=== PATIENT | female | born 1970 | race Caucasian/White ===

== ENCOUNTER 2024-10-02 10:05 | Outpatient (AMB) | payer OTHER, SELFPAY ==
[2024-10-02 10:13] VITALS: BP 133/84; PULSE 112; RESP 19; TEMP 36.8; O2SAT 98; BMI 30.3
--- NOTE | 2024-10-02 10:13 | PD.GSCLVISIT ---
Vital Signs - [facility] 10/02/24 10:13 Height 1.73 m Weight 90.407 kg Weight Measurement Method Standing Scale BMI 30.3 BP 133/84 H Blood Pressure Source Automatic Cuff Blood Pressure Location Right Lower Arm Position Sitting Respiration 19 Pulse 112 H Pulse Source Monitor Temp 98.2 F Temp Source Temporal Artery Scan Pulse Oximetry (%) 98 Oxygen Delivery Method Room Air Med/Allergies Allergies & Medications Allergies azithromycin Allergy (Severe, Verified 10/02/24 10:15) Rash camphor (From Biofreeze) Allergy (Severe, Verified 10/02/24 10:15) Difficulty Breathing latex Allergy (Severe, Verified 10/02/24 10:15) Difficulty Breathing lisinopril Allergy (Severe, Verified 10/02/24 10:15) COUGH menthol (From Biofreeze) Allergy (Severe, Verified 10/02/24 10:15) Difficulty Breathing metoclopramide Allergy (Severe, Verified 10/02/24 10:15) Hallucinating nifedipine Allergy (Severe, Verified 10/02/24 10:15) RAPID HEART RATE NSAIDS (Non-Steroidal Anti-Inflamma Allergy (Severe, Verified 10/02/24 10:15) KIDNEYS STOP WORKING promethazine (From Phenergan) Allergy (Severe, Verified 10/02/24 10:15) Agitated vancomycin Allergy (Severe, Verified 10/02/24 10:15) Redness of Skin gabapentin (From Neurontin) Allergy (Intermediate, Verified 10/02/24 10:15) Hallucinating levofloxacin Adverse Reaction (Severe, Verified 10/02/24 10:15) extreme heel pain N95 Allergy (Severe, Uncoded 10/02/24 10:15) Difficulty Breathing Medication Reconciliation paroxetine HCl 20 mg tablet (Paxil) 10 mg PO HS 09/30/21 [History Confirmed 10/02/24] sevelamer carbonate 800 mg tablet 800 mg PO TIDWM 08/11/22 [History Confirmed 10/02/24] atenolol 25 mg tablet 50 mg (2 x 25 mg) PO QDAY #30 tabs 08/17/22 [Rx Confirmed 10/02/24] losartan 25 mg tablet 100 mg PO QDAY 06/07/23 [History Confirmed 10/02/24] calcitriol 0.5 mcg capsule 0.5 mcg PO QDAY 02/26/24 [History Confirmed 10/02/24] calcium carbonate (Tums) 2,000 mg PO QDAY 02/26/24 [History Confirmed 10/02/24] cetirizine 10 mg tablet (Zyrtec) 10 mg PO QDAY 02/26/24 [History Confirmed 10/02/24] vitamin B complex-vitamin C-folic acid 0.8 mg tablet (Malika-Carissa) 1 tab PO QDAY 02/26/24 [History Confirmed 10/02/24] calcitriol 0.25 mcg capsule 0.25 mcg PO QDAY #30 caps 04/13/24 [Rx Confirmed 10/02/24] MA Intake Visit Data Collection New Patient or Established: Established Patient (seen at [facility] within 3 years) Seen by Clinical Staff ONLY (RN/GIL): No Reason for Visit:: wrosening hemorrhoid Pain Present Currently: No Pain scale:: 0 Mint Wafer Depositor Required: No PCP or OBGYN visit in last 3 months: No Hx Now: No Do You Feel Safe at Home: Yes Authorities Contacted: N/A Smoking Status Smoking Status: Never smoker Immunization / Flu Flu Vaccine in the Last 12 Months: Yes Flu Vaccine Exclusion Criteria: Already Received Past Medical History Past Medical History NEUROLOGIC: Negative Neurological Disorders or Seizures CARDIAC: Positive Cardiac Disorders, Hypercholesterolemia and Hypertension; Negative Congestive Heart Failure, Edema or Cellulitis RESPIRATORY: Negative Chronic Obstructive Pulmonary Disease (COPD), Asthma or Bronchitis GASTROINTESTINAL: Positive Gastrointestinal Disorders, Gall Bladder Disease, Hemorrhoids and Gastroesophageal Reflux Disease; Negative Hepatitis GENITOURINARY: Positive Genitourinary Disorders, Renal Disease, Kidney Stones, Polycystic Kidney Disease and Dialysis REPRODUCTIVE: Positive Previous Pregnancies MUSCULOSKELETAL: Positive Arthritis and Fractures ENDOCRINE: Positive Endocrine Disorders and Parathyroid Disease; Negative Diabetes Mellitus Type 1, Diabetes Mellitus Type 2 or Hypothyroidism HEMATOLOGIC: Positive Blood Disorders and Anemia; Negative Sickle Cell Disease PSYCHO/SOCIAL: Positive Depression and Anxiety OTHER HISTORY: Positive Hospitalization, Blood Transfusions, Organ Transplant and Chicken Pox; Negative Autoimmune Disease, Shingles, Falls, Blood Transfusion Reaction, Anesthesia Reactions, Chemotherapy, Radiation Therapy, MRSA, VRSA, Vancomycin-Resistant Enterococci, Measles, Mumps or Cancer Family History FAMILY HISTORY: Positive Family Psychiatric Problems, Family Cardiac Disorders, Family Cancer, Family Surgery and Family Anesthesia Reaction; Negative Family Respiratory Disorders or Family Gastrointestinal Problems Surgical History SURGICAL: Positive Thyroidectomy, Hysterectomy and Organ Transplant; Negative Pacemaker Social History SMOKING STATUS: Smoking status: Never smoker SECOND HAND EXPOSURE: second hand exposure: No ALCOHOL: Alcohol Intake: Never HOUSING: Housing: House LIVES WITH: Lives With: Children, Family and Spouse HPI HPI Narrative 54F with PKD on HD MWF, gastroparesis, longstanding hemorrhoids presenting with symptomatic hemorrhoids. Pt states she has bleeding with BMs and has been told she is anemic as a result; she also has episodes of perianal pain, is unable to sit comfortably for long periods and also has difficulty maintaining her perianal hygiene. She reports having a longstanding history of constipation which is overall improved but she is only able to tolerate 1L of water daily and does not tolerate fiber supplements due to her gastroparesis. Pt has tried all OTC and prescription remedies but feels her symptoms are not improving Pt underwent colonoscopy 02/2024 with findings of non-bleeding AVMs and a TVA that was <2cm, in addition to hemorrhoids PMH: PKD, gastroparesis PSHx: Renal transplant 03/2023 which lasted 10 days, hysterectomy, cholecystectomy Meds: Not currently on antiplt/anticoagulation or immunosuppression Allergies: includes metoclopramide, NSAIDs, vancomycin Family hx: No known CRC ROS Review of Systems Systems Reviewed: All systems reviewed, normal except as documented Objective/Exam General General Appearance: alert, cooperative and well groomed Resp Respiratory exam: Absent respiratory distress Rectal Rectal exam: Present hemorrhoids (internal and external hemorrhoids, no active bleeding) Assessment & Plan Diagnosis / Problem List (1) Hemorrhoids: Status: Acute Assessment & Plan: 54F with PKD on HD MWF, gastroparesis and longstanding symptomatic hemorrhoids refractory to medical management. Given that pt has tried all remedies I explained that it is reasonable to pursue THD and enumerated benefits/risks including severe pain, bleeding, infection and hemorrhoid persistence/recurrence. All questions were answered and pt is agreeable to proceeding Plan: Pt will plan on rescheduling HD for surgery Sun 12 Office Procedures GNS Level of Care Nursing/Assessment Patient Status: Established Patient Nursing Assessment/Reassesment: Medication Reconciliation, Update PMH in EMR and Vital Signs Coordination of Care: Complex Care and Chronic Disease 1-5, Consent,records obtained, informed consent, Education Simp Pt/Fam, Results/Orders obtained and Staff clarify orders Established Patient Charge Established Patient Point Assignment: 90 Established Patient Point Charge: EP Level 3 (80-115) Patient Portal Questionaires Social History Living Situation History Housing: House Housing Other:: pt lives with and dtr Tobacco History Smoking Status: Never smoker Second Hand Smoke Exposure: No Alcohol History Alcohol Intake: Never Domestic Abuse History Do You Feel Safe at Home: Yes Review of Systems Report any current symptoms Only answer those that you have currently: Past Medical History Past Medical History Have you ever been diagnosed with any of the following: Neurological Problems Seizures: No Cardiology Problems Hypercholesterolemia: Yes Congestive Heart Failure: No Edema: No Cellulitis: No Hypertension: Yes Respiratory Problems Chronic Obstructive Pulmonary Disease (COPD): No Asthma: No Bronchitis: No Stomache/Intestinal Problems Hepatitis: No Gall Bladder Disease: Yes Hemorrhoids: Yes Gastroesophageal Reflux Disease: Yes Genital/Urinary Problems Renal Disease: Yes Kidney Stones: Yes Polycystic Kidney Disease: Yes Dialysis: Yes Reproductive Problems Previous Pregnancies: Yes Musculoskeletal Problems Arthritis: Yes Fractures: Yes Endocrine Problems Diabetes Mellitus Type 1: No Diabetes Mellitus Type 2: No Hypothyroidism: No Parathyroid Disease: Yes Blood Problems Anemia: Yes Sickle Cell Disease: No Psychologic Problems Depression: Yes Anxiety: Yes Other Problems Hospitalization: Yes Autoimmune Disease: No Shingles: No Falls: No Blood Transfusions: Yes Blood Transfusion Reaction: No Anesthesia Reactions: No Organ Transplant: Yes Chemotherapy: No Radiation Therapy: No MRSA: No VRSA: No Vancomycin-Resistant Enterococci: No Chicken Pox: Yes Measles: No Mumps: No Cancer: No Surgical History Hysterectomy: Yes Pacemaker: No Thyroidectomy: Yes
== END 2024-10-02 11:11 | disposition home or self-care (01) ==
PROVIDERS: PCP Internal Medicine; Referring Provider Internal Medicine; Supervising Provider Surgery; Visit Provider Surgery
DX: K64.8 Other hemorrhoids (principal); K64.4 Residual hemorrhoidal skin tags
CPT/HCPCS: 99213; G0463

== ENCOUNTER → 2024-10-02 | Outpatient (CLI) | payer OTHER, SELFPAY ==
--- NOTE | 2024-10-02 | XR_ITS ---
Examination: PA lateral chest 2 views Technique: Upright PA lateral chest 2 views Exam date and time: October 02, 2024 1209 hrs. Indications: Preop kidney surgery Findings: Normal heart size No lobar pneumonia or pulmonary edema Prominent osteopenia Impression: No pneumonia or pulmonary edema
[2024-10-02 13:35] LABS: Thyroid Stimulating Hormone 1.85 uIU/mL (0.55-4.78)
== END | disposition home or self-care (01) ==
LOC: CDIM 11:43 → COPL 12:19
PROVIDERS: PCP Internal Medicine; Referring Provider Internal Medicine; Visit Provider Internal Medicine
DX: Z00.00 Encounter for general adult medical examination without abnormal findings (principal); N18.6 End stage renal disease
CPT/HCPCS: 36415; 71046; 84443

== ENCOUNTER 2024-10-30 07:50 | Day surgery (SDC) | payer OTHER, SELFPAY ==
[2024-10-27 08:30] VITALS: BMI 31.1
--- NOTE | 2024-10-27 08:49 | EKG_ITS ---
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
[2024-10-27 10:26] LABS: Basophils % (Auto) 0 % (0-2.5); Eosinophils # (Auto) 0.2 Thou/mm3 (0.0-0.5); Eosinophils % (Auto) 2 % (0-10); Hematocrit 30.8 % (36.0-46.0); Hemoglobin 10.1 g/dL (12.0-16.0); Immature Granulocytes % (Auto) 0 % (0-0); Immature Granulocytes Auto 0.03 Thou/mm3 (0.00-0.00); Lymphocytes # (Auto) 0.6 Thou/mm3 (1.0-4.8); Lymphocytes % (Auto) 6 % (10-50); Mean Corpuscular HGB Conc 32.8 g/dl (31.0-37.0); Mean Corpuscular Hemoglobin 34.6 pg (25.0-35.0); Mean Corpuscular Volume 106 fL (80-100); Monocytes # (Auto) 0.6 Thou/mm3 (0.0-0.8); Monocytes % (Auto) 6 % (0-12); Neutrophils # (Auto) 8.5 Thou/mm3 (1.8-7.7); Neutrophils % (Auto) 85 % (37-80); Nucleated Red Blood Cell % 0 /100 WBC (0); Platelet Count 220 Thou/mm3 (140-440); Red Blood Count 2.92 Miln/mm3 (4.00-5.20); White Blood Count 9.9 Thou/mm3 (3.6-11.0)
[2024-10-27 10:37] LABS: INR 1.1 (0.9-1.3); Partial Thromboplastin Time 26.3 Seconds (22.0-36.0); Prothrombin Time 11.8 Seconds (9.0-12.2)
[2024-10-27 11:02] LABS: Alanine Aminotransferase 13 U/L (10-49); Albumin, Serum 4.5 gm/dL (3.5-5.0); Albumin/Globulin Ratio 1.7 (1.2-2.2); Alkaline Phosphatase 47 U/L (46-116); Anion Gap 15 (7-16); Aspartate Amino Transferase 15 U/L (0-34); BUN/Creatinine Ratio 7 Ratio (12-20); Bilirubin,Total 0.7 mg/dL (0.3-1.2); Blood Urea Nitrogen 71 mg/dL (9-23); Calcium 8.1 mg/dL (8.3-10.6); Calcium (Corrected) 8.1 mg/dL (8.5-10.1); Carbon Dioxide 26.2 mMol/L (20.0-31.0); Chloride 96 mMol/L (98-107); Creatinine (Component) 10.7 mg/dL (0.6-1.3); Globulin 2.6 gm/dL (2.3-3.5); Glucose 99 mg/dL (74-106); Osmolality,Calculated 294 (275-295); Potassium 4.6 mMol/L (3.4-5.1); Sodium 137 mMol/L (136-145); Total Protein 7.1 gm/dL (5.7-8.2); eGFR 4 See Note
--- NOTE | 2024-10-29 14:00 | SUR.PREOP ---
Pt notified to come in at 0800 tomorrow for surgery.
[2024-10-30] VITALS (9 sets, daily range): BP systolic 108–161; BP diastolic 73–96; PULSE 66–81; RESP 15–18; TEMP 36.1–36.5; O2SAT 95–100; BMI 30.8
[2024-10-30] MEDS: SODIUM CHLORIDE 0.9% 500 ML 500 ML 20 ML IV (08:44)
[2024-10-30 09:11] LABS: Potassium 3.9 mMol/L (3.4-5.1)
--- NOTE | 2024-10-30 11:11 | ESOP_ITS ---
Date of Procedure 10/30/24 Pre Op Diagnosis Symptomatic external and internal hemorrhoids Post Op Diagnosis Same Procedure Transanal hemorrhoidal dearterialization Findings Large external and internal hemorrhoids Procedure Description After discussion of risks and benefits, patient was brought to the operating room, SCDs were placed and general anesthesia was induced. She was placed in lithotomy position with proper padding and was prepped and draped in the usual sterile fashion. After timeout a KEITH was performed which was consistent with patient's known hemorrhoids. THD was then undertaken at the 1, 3, 5, 7, 9, 11:00 positions. Because of the prolapsing tissue/external hemorrhoids, mucopexy was also performed at the 1, 5, and 9:00 positions. In order to avoid anal stricture I opted not to perform any additional mucopexies. Left and right pudendal nerve blocks were performed as well as a local block for total of 30 cc of half percent Marcaine. Patient was returned to supine position and extubated without complication. She was brought to PACU in stable condition Pathology / specimen None Estimated Blood Loss 25 Surgeon Bernice Palma MD Surgical Staff Operation Date: 10/30/24 11:30 Case Staff CERTIFIED REAL ESTATE APPRAISER: Per Rodas
--- NOTE | 2024-10-30 11:13 | ESDS_ITS ---
Planned Discharge Date 10/30/24 DS: Providers Provider Primary care physician: Ghada Whipple MD Attending Provider on Admission: Bernice Palma MD Attending Provider on DC: Bernice Palma MD Discharging Provider: Bernice Palma MD Diagnosis Discharge Diagnosis (1) Hemorrhoids: Status: Acute Problem List Completed Was Problem List Reviewed/Reconciled?: Yes Exam Vital Signs Temp Pulse Resp BP Pulse Ox 97.7 F 66 16 108/73 98 10/30/24 08:35 10/30/24 08:35 10/30/24 08:35 10/30/24 08:35 10/30/24 08:35 Discharge Plan Plan Patient Disposition: HOME (Self Care) Prescriptions/Referrals Prescriptions/Med Rec: New oxycodone-acetaminophen [Percocet] 5-325 mg tablet 1 tab PO Q6H MDD 6 tabs PRN (Reason: pain) Qty: 30 0RF Rx Instructions: Take 1-2 tabs as needed every 6 hours for severe pain No Action paroxetine HCl [Paxil] 20 mg Tablet 10 mg PO HS sevelamer carbonate 800 mg tablet 800 mg PO TIDWM Patient Comments: TAKE TWO TABLETS BY MOUTH THREE TIMES DAILY WITH FOOD cetirizine [Zyrtec] 10 mg Tablet 10 mg PO QDAY calcitriol 0.5 mcg capsule 0.5 mcg PO QDAY Patient Comments: TAKE FOUR CAPSULES BY MOUTH TWICE DAILY calcium carbonate [Tums] 200 mg calcium (500 mg) Tablet,Chewable 1,000 mg PO QDAY Malika-Carissa 0.8 mg tablet 1 tab PO QDAY Patient Comments: TAKE ONE TABLET BY MOUTH EVERY DAY VITAMIN furosemide 40 mg tablet 40 mg PO QDAY Patient Comments: TAKE ONE TABLET BY MOUTH EVERY MORNING A DIURETIC midodrine 10 mg tablet 10 mg PO .3 X WEEK Patient Comments: WITH DIALYSIS alprazolam 0.25 mg tablet 0.25 mg PO QDAY PRN (Reason: anxiety) Patient Comments: TAKE ONE TABLET BY MOUTH EVERY DAY NEEDED FOR ANXIETY atenolol 25 mg Tablet 50 mg PO .QOD Referrals: Bernice Palma MD [Physician] - (You will receive a phone call to confirm a follow-up appointment with me in 6 weeks) Ghada Whipple MD [Primary Care Provider] - Patient/Caregiver Discharge Instructions Other Discharge Activity Instructions:: Avoid constipation and diarrhea You may resume sitz baths as needed for pain, swelling and bleeding on 10/31 If you develop worsening pain, nausea/vomiting or fever please seek care in ER Education Materials: Discharge Instructions for ..., Taking a Sitz Bath Print Language: Italian Stand Alone Forms: Latia Award Info., Patient Portal Info Letter Discharge Order Discharge Orders: Discharge (Routine); Ordered 10/30/24 Ordered By: Bernice Palma Results Results: Laboratory Laboratory results: results reviewed Procedures Procedure Date 10/30/24 Procedures Transanal hemorrhoidal dearterialization
--- NOTE | 2024-10-30 11:18 | SUR.PHASEI ---
Pt. arrived to recovery via gurney, eyes closed, oral airway in place, pt. receiving 6 liters 02 via oxymask, lung sounds clear, equal expansion marin., dressing to rectum abd. pad and mesh underwear in place, no active bleeding noted. Report received from Britni RN, Christine RN, Jamie ORR and Darby ORR advisory intern.
--- NOTE | 2024-10-30 11:39 | SUR.PHASEII ---
Gave report on pt. s/p surgery to Adina Garcia RN.
[2024-10-30] MEDS: ONDANSETRON INJ 2 MG/ML INJ 2 ML 4 MG IV (11:53)
[2024-10-30] MEDS: fentaNYL CIT INJ 50 mCg/ML AMP 2ML IV (12:10)
--- NOTE | 2024-10-30 12:37 | SUR.PHASEII ---
pt awake, alert, able to follow commands, breathing unlabored, dressing to rectum clean, dry, and intact, discharge instructions given with spouse present-pt and spouse verbalize understanding, pt able to dress self and ambulate with steady gait to wheelchair, pt discharged via wheelchair with all belongings and copies of discharge paperwork.
== END 2024-10-30 12:37 | disposition home or self-care (01) ==
PROVIDERS: Anesthesiology; PCP Internal Medicine; Referring Provider Surgery; Visit Provider Surgery
PROC: (CPT 46948; principal; 2024-10-30 11:30)
DX: K64.4 Residual hemorrhoidal skin tags (principal); K64.8 Other hemorrhoids; Z01.810 Encounter for preprocedural cardiovascular examination
CPT/HCPCS: 46948; 36415; 80053; 84132; 85025; 85610; 85730; 93005; A4217; A4649; J0131; J0330; J0690; J1100; J2250; J2371; J2405; J2704; J3010; J3490; J7040

== ENCOUNTER 2024-12-04 14:49 | Outpatient (AMB) | payer OTHER, SELFPAY ==
[2024-12-04 15:13] VITALS: BP 129/83; PULSE 85; RESP 18; TEMP 36.3; O2SAT 95; BMI 30.2
--- NOTE | 2024-12-04 15:13 | PD.GSCLVISIT ---
Vital Signs - [facility] 12/04/24 15:13 Height 1.73 m Height Method Stated Weight 90.463 kg Weight Measurement Method Standing Scale BMI 30.2 BP 129/83 Blood Pressure Source Automatic Cuff Blood Pressure Location Right Upper Arm Position Sitting Respiration 18 Pulse 85 Pulse Source Monitor Temp 97.3 F Temp Source Temporal Artery Scan Pulse Oximetry (%) 95 Oxygen Delivery Method Room Air Med/Allergies Allergies & Medications Allergies azithromycin Allergy (Severe, Verified 12/04/24 15:14) Rash camphor (From Biofreeze) Allergy (Severe, Verified 12/04/24 15:14) Difficulty Breathing latex Allergy (Severe, Verified 12/04/24 15:14) Difficulty Breathing lisinopril Allergy (Severe, Verified 12/04/24 15:14) COUGH menthol (From Biofreeze) Allergy (Severe, Verified 12/04/24 15:14) Difficulty Breathing metoclopramide Allergy (Severe, Verified 12/04/24 15:14) Hallucinating nifedipine Allergy (Severe, Verified 12/04/24 15:14) RAPID HEART RATE NSAIDS (Non-Steroidal Anti-Inflamma Allergy (Severe, Verified 12/04/24 15:14) KIDNEYS STOP WORKING promethazine (From Phenergan) Allergy (Severe, Verified 12/04/24 15:14) Agitated vancomycin Allergy (Severe, Verified 12/04/24 15:14) Redness of Skin gabapentin (From Neurontin) Allergy (Intermediate, Verified 12/04/24 15:14) Hallucinating levofloxacin Adverse Reaction (Severe, Verified 12/04/24 15:14) extreme heel pain N95 Allergy (Severe, Uncoded 12/04/24 15:14) Difficulty Breathing Medication Reconciliation paroxetine HCl 20 mg tablet (Paxil) 10 mg PO HS 09/30/21 [History Confirmed 12/04/24] sevelamer carbonate 800 mg tablet 800 mg PO TIDWM 08/11/22 [History Confirmed 12/04/24] calcitriol 0.5 mcg capsule 0.5 mcg PO QDAY 02/26/24 [History Confirmed 12/04/24] calcium carbonate (Tums) 1,000 mg PO QDAY 02/26/24 [History Confirmed 12/04/24] cetirizine 10 mg tablet (Zyrtec) 10 mg PO QDAY 02/26/24 [History Confirmed 12/04/24] vitamin B complex-vitamin C-folic acid 0.8 mg tablet (Malika-Carissa) 1 tab PO QDAY 02/26/24 [History Confirmed 12/04/24] alprazolam 0.25 mg tablet 0.25 mg PO QDAY PRN anxiety 10/27/24 [History Confirmed 12/04/24] atenolol 25 mg tablet 50 mg PO .QOD 10/27/24 [History Confirmed 12/04/24] furosemide 40 mg tablet 40 mg PO QDAY 10/27/24 [History Confirmed 12/04/24] midodrine 10 mg tablet 10 mg PO .3 X WEEK 10/27/24 [History Confirmed 12/04/24] acetaminophen 500 mg capsule 1,000 mg (2 x 500 mg) PO Q6H PRN pain #60 caps 10/30/24 [Rx Confirmed 12/04/24] oxycodone 5 mg tablet 5 mg PO Q6H PRN pain #30 tabs 10/30/24 [Rx Confirmed 12/04/24] MA Intake Visit Data Collection New Patient or Established: Established Patient (seen at [facility] within 3 years) Reason for Visit:: POST OP THD Pain Present Currently: No Pain scale:: 0 Pain Scale Used: Galeana-Diego/Numerical Neon Sign Worker Required: No PCP or OBGYN visit in last 3 months: Yes Hx Now: No Do You Feel Safe at Home: Yes Authorities Contacted: N/A Smoking Status Smoking Status: Never smoker Immunization / Flu Flu Vaccine in the Last 12 Months: No Flu Vaccine Exclusion Criteria: No Exclusion Criteria Past Medical History Past Medical History NEUROLOGIC: Negative Neurological Disorders or Seizures CARDIAC: Positive Cardiac Disorders, Hypercholesterolemia and Hypertension; Negative Congestive Heart Failure, Edema or Cellulitis RESPIRATORY: Negative Chronic Obstructive Pulmonary Disease (COPD), Asthma or Bronchitis GASTROINTESTINAL: Positive Gastrointestinal Disorders (GASTROPARESIS), Gall Bladder Disease, Hemorrhoids and Gastroesophageal Reflux Disease; Negative Hepatitis GENITOURINARY: Positive Genitourinary Disorders, Renal Disease, Kidney Stones, Polycystic Kidney Disease and Dialysis (M-W-F) REPRODUCTIVE: Positive Previous Pregnancies MUSCULOSKELETAL: Positive Arthritis and Fractures (ARM A CHILD) ENDOCRINE: Positive Endocrine Disorders and Parathyroid Disease (HAD PARATHYROIDECTOMY); Negative Diabetes Mellitus Type 1, Diabetes Mellitus Type 2 or Hypothyroidism HEMATOLOGIC: Positive Blood Disorders and Anemia; Negative Sickle Cell Disease PSYCHO/SOCIAL: Positive Depression and Anxiety OTHER HISTORY: Positive Blood Transfusions, Organ Transplant (KIDNEY, REMOVED 10 DAYS LATER) and Chicken Pox; Negative Hospitalization, Autoimmune Disease, Shingles, Falls, Blood Transfusion Reaction, Anesthesia Reactions, Chemotherapy, Radiation Therapy, MRSA, VRSA, Vancomycin-Resistant Enterococci, Measles, Mumps or Cancer Family History FAMILY HISTORY: Positive Family Psychiatric Problems, Family Cardiac Disorders, Family Cancer, Family Surgery and Family Anesthesia Reaction (MOTHER WOKE UP DURING ANESTHESIA); Negative Family Respiratory Disorders or Family Gastrointestinal Problems Surgical History SURGICAL: Positive Thyroidectomy (PARATHYROIDECTOMY), Hysterectomy and Organ Transplant (KIDNEY, REMOVED 10 DAYS LATER); Negative Pacemaker Social History SMOKING STATUS: Smoking status: Never smoker SECOND HAND EXPOSURE: second hand exposure: No SUBSTANCE USE: Substance use type: does not use ALCOHOL: Alcohol Intake: Never HOUSING: Housing: House LIVES WITH: Lives With: Children, Family and Spouse Travel Risk Travel Hx Recent Travel: No HPI HPI Narrative 54 year old female with PKD on HD MWF, gastroparesis, longstanding hemorrhoids presenting for post op THD follow up. She states that she is doing well and is experiencing no pain. She states that the pain was severe the first 3-4 weeks after but has resolved and has not been experiencing pain for approximately 2 weeks now. She has not been needing to take any pain medications. She reports that she is no longer experiencing any bleeding from the area for about 3 weeks now. Approximately 3 weeks after she had purulent discharge from the area with fever but was started on Rocephin. She states that her symptoms cleared up with the course of Rocephin and she has not had any recurrence of those symptoms. She notes that the prolapsed tissue from the hemorrhoids has gone down about 50% in size and is no longer bothersome. She is able to sit comfortably without any symptoms at this time. She has been having a bowel movement daily and states that they have been normal in consistency, not too soft or hard. She is drinking approximately 2 L water daily, limited due to dialysis. Unable to tolerate fiber supplements due to her gastroparesis. Overall she is doing well at this time. Her last colonoscopy was 02/2024 with findings of non bleeding AVMs and a TVA < 2cm, and was told to repeat a colonoscopy in 5 years. She will be due for another colonoscopy in 2028. PMH: PKD, gastroparesis PSHx: Renal transplant 03/2023 which lasted 10 days, hysterectomy, cholecystectomy Meds: Not currently on antiplt/anticoagulation or immunosuppression Allergies: includes metoclopramide, NSAIDs, vancomycin, azithromycin, latex, lisinopril, nifedipine, promethazine, vancomycin, gabapentin, levofloxacin Social hx: Denies smoking Family hx: No known CRC ROS Review of Systems Systems Reviewed: All systems reviewed, normal except as documented Objective/Exam General General Appearance: alert, in no apparent distress, comfortable and cooperative Resp Respiratory exam: Absent respiratory distress Assessment & Plan Diagnosis / Problem List (1) Hemorrhoids: Status: Chronic Assessment & Plan: 54 year old female with PKD on HD MWF, gastroparesis, longstanding hemorrhoids presenting for post op THD follow up. Patient is doing well at this time. She denies any pain or bleeding. She is able to sit comfortably without any symptoms. She has been having bowel movements daily and has noticed approx. 50% decrease in the size of the tissues in the area. Overall patient is stable and doing well at this time. Patient was informed to return to clinic as needed or if she has any recurrence of purulent discharge from the area. Encouraged to follow through with repeat colonoscopy when due in another 4 years. Office Procedures GNS Level of Care Nursing/Assessment Patient Status: Established Patient Nursing Assessment/Reassesment: Medication Reconciliation, Update PMH in EMR and Vital Signs Coordination of Care: Complex Care and Chronic Disease 1-5, Education Complex Pt/Fam, Consent,records obtained, informed consent, Lab and Imaging orders, Results/Orders obtained and Staff clarify orders Established Patient Charge Established Patient Point Assignment: 110 Established Patient Point Charge: EP Level 3 (80-115) Patient Portal Questionaires Social History Living Situation History Housing: House Housing Other:: pt lives with and dtr Tobacco History Smoking Status: Never smoker Second Hand Smoke Exposure: No Alcohol History Alcohol Intake: Never Domestic Abuse History Do You Feel Safe at Home: Yes Review of Systems Report any current symptoms Only answer those that you have currently: Past Medical History Past Medical History Have you ever been diagnosed with any of the following: Neurological Problems Seizures: No Cardiology Problems Hypercholesterolemia: Yes Congestive Heart Failure: No Edema: No Cellulitis: No Hypertension: Yes Respiratory Problems Chronic Obstructive Pulmonary Disease (COPD): No Asthma: No Bronchitis: No Stomache/Intestinal Problems Hepatitis: No Gall Bladder Disease: Yes Hemorrhoids: Yes Gastroesophageal Reflux Disease: Yes Genital/Urinary Problems Renal Disease: Yes Kidney Stones: Yes Polycystic Kidney Disease: Yes Dialysis: Yes (--) Reproductive Problems Previous Pregnancies: Yes Musculoskeletal Problems Arthritis: Yes Fractures: Yes (ARM A CHILD) Endocrine Problems Diabetes Mellitus Type 1: No Diabetes Mellitus Type 2: No Hypothyroidism: No Parathyroid Disease: Yes (HAD PARATHYROIDECTOMY) Blood Problems Anemia: Yes Sickle Cell Disease: No Psychologic Problems Depression: Yes Anxiety: Yes Other Problems Hospitalization: No Autoimmune Disease: No Shingles: No Falls: No Blood Transfusions: Yes Blood Transfusion Reaction: No Anesthesia Reactions: No Organ Transplant: Yes (KIDNEY, REMOVED 10 DAYS LATER) Chemotherapy: No Radiation Therapy: No MRSA: No VRSA: No Vancomycin-Resistant Enterococci: No Chicken Pox: Yes Measles: No Mumps: No Cancer: No Surgical History Hysterectomy: Yes Pacemaker: No Thyroidectomy: Yes (PARATHYROIDECTOMY)
== END 2024-12-04 15:32 | disposition home or self-care (01) ==
LOC: HODSRG 14:49
PROVIDERS: PCP Internal Medicine; Referring Provider Internal Medicine; Supervising Provider Surgery; Visit Provider Surgery
DX: K64.9 Unspecified hemorrhoids (principal)
CPT/HCPCS: 99213; G0463

== ENCOUNTER 2025-04-09 06:46 | Day surgery (SDC) | payer OTHER, SELFPAY ==
[2025-03-24 08:53] VITALS: BMI 30.4
--- NOTE | 2025-04-08 07:00 | EKG_ITS ---
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
[2025-04-08 16:17] LABS: Basophils # (Auto) 0.1 Thou/mm3 (0.0-0.2); Basophils % (Auto) 1 % (0-2.5); Eosinophils # (Auto) 0.2 Thou/mm3 (0.0-0.5); Eosinophils % (Auto) 3 % (0-10); Hematocrit 37.1 % (36.0-46.0); Hemoglobin 12.0 g/dL (12.0-16.0); Immature Granulocytes Auto 0.03 Thou/mm3 (0.00-0.00); Lymphocytes # (Auto) 0.6 Thou/mm3 (1.0-4.8); Lymphocytes % (Auto) 10 % (10-50); Mean Corpuscular HGB Conc 32.3 g/dl (31.0-37.0); Mean Corpuscular Hemoglobin 32.8 pg (25.0-35.0); Mean Corpuscular Volume 101 fL (80-100); Monocytes # (Auto) 0.5 Thou/mm3 (0.0-0.8); Monocytes % (Auto) 9 % (0-12); Neutrophils # (Auto) 4.5 Thou/mm3 (1.8-7.7); Neutrophils % (Auto) 76 % (37-80); Nucleated Red Blood Cell # 0.00 Thou/mm3 (0.00-0.00); Nucleated Red Blood Cell % 0 /100 WBC (0); Platelet Count 219 Thou/mm3 (140-440); RDW Standard Deviation 50.2 fL (36.4-46.3); Red Blood Count 3.66 Miln/mm3 (4.00-5.20); White Blood Count 5.9 Thou/mm3 (3.6-11.0)
[2025-04-08 16:28] LABS: INR 1.0 (0.9-1.3); Partial Thromboplastin Time 23.7 Seconds (22.0-36.0); Prothrombin Time 11.4 Seconds (9.0-12.2)
[2025-04-08 16:30] LABS: Anion Gap 16 (7-16); BUN/Creatinine Ratio 5 Ratio (12-20); Blood Urea Nitrogen 28 mg/dL (9-23); Calcium 10.0 mg/dL (8.3-10.6); Carbon Dioxide 30.3 mMol/L (20.0-31.0); Chloride 94 mMol/L (98-107); Creatinine (Component) 6.0 mg/dL (0.6-1.3); Estimated Creatinine Clearance 12.2 mL/min (>60); Glucose 88 mg/dL (74-106); Osmolality,Calculated 283 (275-295); Potassium 3.6 mMol/L (3.4-5.1); Sodium 140 mMol/L (136-145); eGFR 8 See Note
[2025-04-09] VITALS (12 sets, daily range): BP systolic 102–154; BP diastolic 61–86; PULSE 67–77; RESP 15–21; TEMP 36.3–37; O2SAT 90–98; BMI 29.9
--- NOTE | 2025-04-09 10:11 | PC.NURSE ---
SURGICAL SITE TO RIGHT GROIN AREA REMAINS ASYMPTOMATIC, NO ACTIVE BLEEDING, NO HEMATOMA NOTED ON RIGHT GROIN AREA. RIGHT FEMORAL PULSE NOTED WITH NO CHANGES IN STRENGHT AND QUALITY UPON PALPATION (normal), RIGHT DORSALIS PEDIS PULSE NOTED WITH NO CHANGES STRENGHT AND QUALITY (Doppler, normal). DISTAL CAPPILARRY REFILL <3 SECONDS (Baseline, Right Toes). NO NOTED CHANGES IN COLOR OR TEMPERATURE ON RIGHT LOWER EXTREMITY. PATIENT DENIES GENERAL AND LOCALIZED PAIN. NO TINGLING OR NUMBNESS FELT TO RIGHT LOWER EXTREMITY. NO LOSS IN SENSATION TO RIGHT LOWER EXTREMITY SURGICAL SITE COVERED WITH GAUZE AND TAGADERM DRESSING, WHICH REMAINS IN PLACE, DRY, AND INTACT.
--- NOTE | 2025-04-09 10:53 | PC.NURSE ---
1053 patient awake, alert breathing unlabored, s/p [facility] by dr Samaniego, report received from April DOBBINS
--- NOTE | 2025-04-09 12:27 | PC.NURSE ---
1130 patient is awake alert, breathing unlabored, dressing to right groin dry with no bleeding or hematoma, patient able to eat food tray with no nausea or vomiting, meets discharge criteria, discharge instructions given to patient and Steve, patient discharged home in wheelchair with all belongings.
--- NOTE | 2025-04-11 17:43 | ESOP_ITS ---
RE: PAULINA LANDA : 1970 DATE OF OPERATION: 04/09/2025 PROCEDURES PERFORMED: 1. Diagnostic left heart cardiac catheterization, selective coronary angiogram, left ventricular angiogram, CPT 33819. 2. Iliofemoral angiogram. 3. Pelvic angiogram. 4. Ultrasound-guided access of right femoral artery. 5. Conscious sedation for 30-minute duration. 6. Angio-Seal deployment. DIAGNOSES: Chronic kidney disease, on hemodialysis and abnormal stress test and patient was recommended to have coronary angiogram prior to kidney transplant and also pelvic angiogram _. HISTORY AND INDICATIONS: The patient is a 55-year-old female with a past medical history of hypertension and chronic kidney disease, previous transplantation, now on transplant list again. Transplant team recommended coronary angiogram and pelvic angiogram prior to proceeding with the kidney transplant procedure. DESCRIPTION OF PROCEDURE: The patient was brought to cardiac catheterization laboratory where she was given conscious sedation of 2 mg of Versed and 100 mcg of fentanyl. Right femoral artery was cannulated by micropuncture technique. Ultrasound guidance was used and a 5- Serbian sheath was introduced. Selective right and left coronary angiogram was performed by FR4 and JL4 diagnostic catheter. Left heart catheterization and LV angiogram were performed by JL4 diagnostic catheter. Subsequently, catheter was placed in the lower abdominal aorta. Pelvic angiogram was performed and iliofemoral angiogram was performed. Subsequently, Angio-Seal was deployed successfully. Cardiac catheterization showed following findings: Hemodynamics: Left ventricular pressure 110, EDP is 12, aortic pressure 110/70, no gradient across the aortic valve. Left ventricular angiogram showed normal left ventricular wall motion. Ejection fraction is 65%_. Coronary angiogram showed following findings: Right coronary artery is large and dominant, appears normal, no stenosis. PDA and PL branches are normal. Left coronary system: Left main coronary artery is normal. Left anterior descending artery is normal. Circumflex artery is normal. Pelvic angiogram showed normal abdominal aorta. Both common iliac arteries are normal and clips that were used for the right internal artery that was used for transplant. Both internal iliac arteries are widely patent. SUMMARY OF FINDINGS: 1. Normal nonobstructive epicardial coronary arteries. 2. Normal left ventricular function. Ejection fraction is 65%. 3. Normal pelvic angiogram. RECOMMENDATIONS: The patient is reassured with negative findings. Recommended to proceed with kidney transplant, low cardiac risk for surgery. Iliac artery is also widely patent. DT: 16:30:03 TT: 17:01:00 Ref: [id number] - TID: [id number] [facility]
== END 2025-04-09 11:30 | disposition home or self-care (01) ==
PROVIDERS: PCP Internal Medicine; Referring Provider Internal Medicine Cardiovascular Disease; Visit Provider Internal Medicine Cardiovascular Disease
PROC: (CPT 93458; principal; 2025-04-09 08:15)
DX: R94.30 Abnormal result of cardiovascular function study, unspecified (principal); Z01.810 Encounter for preprocedural cardiovascular examination; I13.2 Hypertensive heart and chronic kidney disease with heart failure and with stage 5 chronic kidney disease, or end stage renal disease; N18.5 Chronic kidney disease, stage 5; E78.2 Mixed hyperlipidemia; I50.32 Chronic diastolic (congestive) heart failure; Z76.82 Awaiting organ transplant status; Z99.2 Dependence on renal dialysis; Q61.2 Polycystic kidney, adult type
CPT/HCPCS: 93458; G0278; 36415; 75625; 80048; 85025; 85610; 85730; 93005; 99152; 99153; A4649; C1725; C1760; C1769; C1894; J0168; J0461; J1643; J2250; J2312; J2371; J2405; J3010; J3490; Q9967; J2305